=== PATIENT | male | born 1975 ===

== ENCOUNTER 2017-11-18 15:30 | Emergency (ER) | payer OTHER ==
[2017-11-18 16:00] VITALS: BP 103/84; PULSE 94; RESP 18; TEMP 98.3; O2SAT 99
--- NOTE | 2017-11-18 16:46 | C.PDOC ---
Time Seen by Provider: 11/18/17 16:21 Chief Complaint (Nursing): Substance Abuse Past Medical History Vital Signs: Last Vital Signs Temp 98.3 F 11/18/17 15:57 Pulse 94 H 11/18/17 15:57 Resp 18 11/18/17 15:57 BP 103/84 11/18/17 15:57 Pulse Ox 99 11/18/17 16:46 Family History: States: Unknown Family Hx - Social History Hx Alcohol Use: Yes Hx Substance Use: Yes (cocaine use) - Immunization History Hx Influenza Vaccination: No Hx Pneumococcal Vaccination: No ED Course And Treatment O2 Sat by Pulse Oximetry: 99 Disposition - Disposition Forms: [facility] (Czech) - Scribe Statement The provider has reviewed the documentation as recorded by the Scribe (Millie Iverson) Provider Attestation: All medical record entries made by the Scribe were at my direction and personally dictated by me. I have reviewed the chart and agree that the record accurately reflects my personal performance of the history, physical exam, medical decision making, and the department course for this patient. I have also personally directed, reviewed, and agree with the discharge instructions and disposition.
--- NOTE | 2017-11-18 16:48 | C.PDOC ---
History Of Present Illness 42 year old male presents to the ED requesting cocaine detox. Patient states his last use was at 0300 today. Patient denies suicidal/homicidal ideation and denies other substance use. Time Seen by Provider: 11/18/17 16:21 Chief Complaint (Nursing): Substance Abuse History Per: Patient History/Exam Limitations: no limitations Onset/Duration Of Symptoms: Hrs Current Symptoms Are (Timing): Still Present Suicide/Self Injury Attempted (Context): None Modifying Factor(s): Cocaine Associated Symptoms: denies: Suicidal Thoughts, Suicidal Plan Involuntary Hold By: None Recent travel outside of the [place]: No Additional History Per: Patient Past Medical History Reviewed: Historical Data, Nursing Documentation, Vital Signs Vital Signs: Last Vital Signs Temp 98.3 F 11/18/17 15:57 Pulse 94 H 11/18/17 15:57 Resp 18 11/18/17 15:57 BP 103/84 11/18/17 15:57 Pulse Ox 99 11/18/17 17:16 - Medical History PMH: No Chronic Diseases Surgical History: No Surg Hx Family History: States: Unknown Family Hx - Social History Hx Alcohol Use: Yes Hx Substance Use: Yes (cocaine use) - Immunization History Hx Influenza Vaccination: No Hx Pneumococcal Vaccination: No Review Of Systems Psych: Positive for: Other (cocaine detox ). Negative for: Suicidal ideation Physical Exam - Physical Exam Appears: No Acute Distress Skin: Normal Color, Warm, Dry Head: Atraumatic, Normacephalic Eye(s): bilateral: Normal Inspection Oral Mucosa: Moist Neck: Supple Chest: Symmetrical, No Deformity, No Tenderness Cardiovascular: Rhythm Regular, No Murmur Respiratory: Normal Breath Sounds, No Rales, No Rhonchi, No Wheezing Extremity: Normal ROM, Capillary Refill (less than 2 seconds ) Neurological/Psych: Oriented x3, Normal Speech, Normal Cognition ED Course And Treatment O2 Sat by Pulse Oximetry: 99 (on RA) Pulse Ox Interpretation: Normal Medical Decision Making Medical Decision Making: Assessment: cocaine detox Progress: Bloodwork and urinalysis ordered and reviewed. Case discussed with early childhood worker, who provided patent with detox referrals. Patient instructed to follow up accordingly. Disposition Counseled Patient/Family Regarding: Diagnosis, Need For Followup - Disposition Disposition: HOME/ ROUTINE Disposition Time: 16:46 Condition: STABLE Additional Instructions: follow up with outpatient referral center in 2 days call to make an appointment return to ER if symptoms worsens or progress Instructions: Cocaine Use Disorder Forms: [facility] (Lao), General Discharge Instructions - Clinical Impression Clinical Impression: Drug abuse - Scribe Statement The provider has reviewed the documentation as recorded by the Scribe (Millie Iverson) Provider Attestation: All medical record entries made by the Scribe were at my direction and personally dictated by me. I have reviewed the chart and agree that the record accurately reflects my personal performance of the history, physical exam, medical decision making, and the department course for this patient. I have also personally directed, reviewed, and agree with the discharge instructions and disposition.
== END 2017-11-18 16:59 | disposition home or self-care (01) ==
LOC: C.ER 15:30
DX: F19.10 Other psychoactive substance abuse, uncomplicated (principal)